=== PATIENT | male | born 1950 | race Caucasian/White ===

== ENCOUNTER 2021-12-29 09:28 | Emergency (ER) | payer OTHER, BC ==
[~2021-12-29] VITALS: Ht 185.4 cm; Wt 102.1 kg
[2021-12-29] MEDS ORDERED: ELIQUIS5 MG PO (09:40)
[2021-12-29] MEDS ORDERED: FLECAINIDE ACE100 MG PO (09:40)
[2021-12-29] MEDS ORDERED: OFLOXACIN5 M1 OT (10:31)
== END 2021-12-29 11:07 ==
LOC: ER 09:28
DX: H60.92 Unspecified otitis externa, left ear (principal); H72.92 Unspecified perforation of tympanic membrane, left ear